=== PATIENT | male | born 1970 | race Hispanic/Latino ===

== ENCOUNTER 2019-04-19 09:06 | Outpatient (CLI) | payer OTHER ==
--- NOTE | 2019-04-19 10:40 | MRI ---
MRI BRAIN WITH AND WITHOUT IV CONTRAST: HISTORY: Headache COMPARISON: None CORRELATION: None FINDINGS: No restricted diffusion is seen. No evidence of infarct, hemorrhage, mass, midline shift or abnormal extra-axial fluid collections is noted. No abnormal postcontrast enhancement is seen. The ventricular size is appropriate and the basilar cisterns are patent. There is a mucous retention cyst versus polyp in the left maxillary sinus. There is mild mucosal dise ase in the paranasal sinuses. There is complex fluid in the right mastoid air cells which can be better evaluated with a CT scan. IMPRESSION: 1. No evidence of acute intracranial process or mass. 2. Paranasal sinus disease
== END 2019-04-19 09:07 | disposition home or self-care (01) ==
LOC: SCSMRI 09:06
DX: R51 Headache (principal); J32.9 Chronic sinusitis, unspecified
CPT/HCPCS: 70553

== ENCOUNTER 2019-11-28 07:59 | Outpatient (CLI) | payer OTHER ==
--- NOTE | 2019-11-28 10:02 | CT ---
CT cervical spine noncontrast HISTORY: Neck pain. Arthritis. FINDINGS: Images including the skull base show chronic appearing opacification of the right mastoid a ir cells inferiorly. Vertebral body heights of the cervical spine maintained. Bulky anterior osteophytosis is present, mos t pronounced at the C3-4 level and C5-6 level, where significant compression upon the posterior hypopharynx and esophagus is present. C2-3: Mild osteophytosis. Central canal and neural foramina are patent. C3-4: Moderate posterior osteophyte/disc complex. Disc space narrowing. Circumferential degenerative changes. Mild to moderate stenosis of the central canal. Mild right and severe left foraminal stenoses. C4-5: Disc space narrowing. Mild posterior osteophyte/disc complex. Circumferential degenerative pereyra ges. Mild stenosis of the central canal. Moderate right and mild left foraminal stenoses. C5-6: Mild disc space narrowing. Mild posterior osteophyte/disc complex and circumferential degenerat janeth changes. Mild stenosis of the central canal and each neural foramen. C6-7: Disc space narrowing. Prominent osteophytosis. Posterior osteophyte/disc complex slightly great er to the left of midline. Circumferential degenerative changes. Mild stenosis of the central canal and left neural foramen. C7-T1: Mild osteophytosis. Central canal and right neural foramen are patent. Mild stenosis of the le ft neural foramen. IMPRESSION : Multilevel degenerative changes throughout the cervical spine as detailed above. Stenosis most severe at the left C3-4 neural foramen. Clinical correlation regarding the left C4 dermatome is required. Bulky anterior osteophytosis at the C3-4 and C5-6 levels, significantly compressing the posterior asp ect of the hypopharynx and upper esophagus.
== END 2019-11-28 08:00 | disposition home or self-care (01) ==
LOC: SCSCT 07:59
PROVIDERS: ATTEND Anesthesiology
DX: M47.812 Spondylosis without myelopathy or radiculopathy, cervical region (principal); M77.9 Enthesopathy, unspecified; R13.10 Dysphagia, unspecified; M48.061 Spinal stenosis, lumbar region without neurogenic claudication; M25.78 Osteophyte, vertebrae; K22.2 Esophageal obstruction
CPT/HCPCS: 72125

== ENCOUNTER 2021-07-09 09:09 | Outpatient (CLI) | payer OTHER | END 2021-07-09 09:10 | disposition home or self-care (01) | LOC: TBSIIMAG 09:09 | PROVIDERS: ATTEND Physician Assistant | DX: M47.26 Other spondylosis with radiculopathy, lumbar region (principal) | CPT/HCPCS: 72100 ==

== ENCOUNTER 2021-07-23 09:29 | Outpatient (CLI) | payer OTHER | END 2021-07-23 09:30 | disposition home or self-care (01) | LOC: SCSCT 09:29 | PROVIDERS: ATTEND Neurological Surgery | DX: M47.26 Other spondylosis with radiculopathy, lumbar region (principal) | CPT/HCPCS: 72120; 72131 ==

== ENCOUNTER 2023-01-29 08:54 | Outpatient (CLI) | payer OTHER | END 2023-01-29 08:55 | disposition home or self-care (01) | LOC: RAD 08:54 | DX: R13.10 Dysphagia, unspecified (principal); R63.39 Other feeding difficulties | CPT/HCPCS: 74230 ==

== ENCOUNTER 2023-03-26 15:30 | Inpatient (IN) | payer OTHER ==
[2023-03-26 15:24] VITALS: BMI 25.7
[2023-04-01] MEDS ORDERED: Thrombin 5000 UNITS/5 ML VIAL ONE (06:25)
[2023-04-01] MEDS ORDERED: CEFAZOLIN 2 GM VIAL ONE ×2 (06:29→12:18)
[2023-04-01] MEDS ORDERED: Sodium Chloride 0.9% 100 ML ONE ×2 (06:29→12:18)
[2023-04-01] MEDS ORDERED: Lidocaine 2% PF 5 ML VIAL ONE (07:07)
[2023-04-01] MEDS ORDERED: Ondansetron PF 4 MG/2 ML Vial ONE (07:07)
[2023-04-01] MEDS ORDERED: Dexamethasone 20 MG/5 ML VIAL ONE (07:07)
[2023-04-01] MEDS ORDERED: Rocuronium Bromide 10 MG/ML (10ML VIAL) ONE (07:07)
[2023-04-01] MEDS ORDERED: Midazolam HCl 2 mg/2 ml Vial ONE (07:08)
[2023-04-01] MEDS ORDERED: PROPOFOL 20 ML ONE ×2 (07:08→08:40)
[2023-04-01] MEDS ORDERED: fentaNYL 50 mcg/mL 1 mL Vial ONE ×4 (07:09→10:51)
[2023-04-01] MEDS ORDERED: SUGAMMADEX SODIUM 200 MG/2 ML VIAL ONE (07:30)
[2023-04-01] MEDS ORDERED: ePHEDrine Sulfate 50 MG/10 ML VIAL ONE (08:26)
[2023-04-01] MEDS ORDERED: Tamsulosin HCl 0.4 MG CAP ONE (12:15)
[2023-04-01] MEDS ORDERED: Acetaminophen/Codeine 30-300mg Tablet ONE (12:17)
== END 2023-04-01 15:00 | disposition home or self-care (01) | DRG 517 ==
LOC: SURG A 04-01 05:59
PROVIDERS: ADMIT Neurological Surgery; ATTEND Neurological Surgery
PROC: 0PB30ZZ Excision of Cervical Vertebra, Open Approach (ICD-10-PCS; principal; 2023-04-01)
DX: M25.78 Osteophyte, vertebrae (principal); R13.10 Dysphagia, unspecified; F41.9 Anxiety disorder, unspecified; E78.5 Hyperlipidemia, unspecified; G89.29 Other chronic pain; F32.A Depression, unspecified; Z98.890 Other specified postprocedural states; Z83.3 Family history of diabetes mellitus; Z79.899 Other long term (current) drug therapy; Z88.8 Allergy status to other drugs, medicaments and biological substances
CPT/HCPCS: J1100; J2001; J2250; J2405; J2704; J3010; J3490